=== PATIENT | female | born 1990 | race Caucasian/White ===

== ENCOUNTER 2019-07-27 17:42 | Emergency (ER) | payer OTHER ==
[~2019-07-27] VITALS: Ht 152.4 cm; Wt 52.2 kg
[2019-07-27 17:49] VITALS: Ht 152.4 cm; Wt 52.2 kg
[2019-07-27 19:28] VITALS: BP 105/72
== END 2019-07-27 19:28 | disposition home or self-care (01) ==
LOC: ED 17:42
DX: F41.9 Anxiety disorder, unspecified (principal)
CPT/HCPCS: Q0092